=== PATIENT | male | born 1950 | race Caucasian/White ===

== ENCOUNTER 2016-08-24 23:10 | Emergency (ER) | payer OTHER ==
--- NOTE | ~2016-08-24 | CT2 ---
[facility] A Service of [facility] & [facility] RADIOLOGY TEXT RESULTS PATIENT: TAY WITT LOCATION: SED : 46 UNIT #: [id number] AGE: [address]: Rom Viveros MD SEX: M ORDER DR: [id number] [place] [id number] MR#: [id number] Acc #: [id number] NAME: TAY WITT : 1950 SEX: M STUDY DATE/TIME: 08/25/2016 00:53 UNIT: SED ROOM: STUDY DESCRIPTION: CT Abd and Pelv W Cont Attending Physician: Rom Viveros M.D. Ordering Physician: Rom Viveros M.D. Primary Care Physician: Rosalinda Lawton M.D. MEDICAL IMAGING REPORT This report is preliminary unless electronic signature is present. EXAM Abdomen and pelvis CT 08/25/2016 at 0053 hours INDICATIONS Upper abdominal pain that started tonight about 3 hours ago. Pain rates 8/10. TECHNIQUE Axial images were obtained through the abdomen and pelvis following IV contrast administration. Multiplanar reformats were obtained. No comparison. This CT exam was performed with one or more of the following radiation dose reduction techniques: automatic control, adjustment of mA and/or kV according to patient size, and iterative reconstruction. FINDINGS ABDOMEN: There is coronary artery disease. Gallbladder is normal. There is some fat stranding around the kidneys which is probably normal for this patient. Correlation with urinalysis results recommended to exclude any evidence of pyelonephritis. There is some scarring in the lower pole of the left kidney. Solid organs are otherwise normal. There is extensive atherosclerotic disease. Visualized colon is normal. There is a small bowel obstruction. Transition zone is in the anterior abdomen just below the umbilicus is probably secondary to adhesions. The distal ileum is completely decompressed. There is a small periincisional hernia to the right of midline near the level of the umbilicus. This does contain a knuckle of small bowel but this does not appear to be the point of obstruction. PELVIS: The colon is grossly normal. Distal small bowel decompressed. Urinary bladder is normal. There is atherosclerotic disease. No free fluid. IMPRESSION [facility]. [facility] A Service of [facility] & [facility] RADIOLOGY TEXT RESULTS PATIENT: TAY WITT [place] [facility] [place] [birth year] [place]IT #: [id number] AGE: [address]: Rom Viveros MD SEX: M ORDER DR: 1. Small bowel obstruction which is likely secondary to adhesions in the right [id number] abdomen. No obstructing lesion is identified. The distal ileum is completely decompressed. 2. Small periincisional hernia to the right of midline near the level of the umbilicus. This contains a knuckle of non incarcerated small bowel. This does not appear to be a point of obstruction. 3. Atherosclerotic disease and coronary artery disease. 4. Fat stranding around both kidneys can be seen as a normal finding. Correlation with urinalysis results recommended to exclude any evidence for pyelonephritis. There is some scarring in the left kidney. Dictated by... Hussein Kay Jr., M.D. THIS IS AN ELECTRONICALLY VERIFIED REPORT Hussein Kay Jr., M.D. at 08/25/2016 5:53 AM MALINDA/quique TD: 08/25/2016 05:46 JOB #: [id number] MEDICAL IMAGING REPORT Page 1 of 1
--- NOTE | ~2016-08-24 | EKG ---
PATIENT: TAY WITT UNIT #: [id number] Ventricular Rate: 107 BPM Atrial Rate: 60 BPM P-R Interval: 576 ms QRS Duration: 98 ms Q-T Interval: 168 ms QTC Calculation(Bezet): 224 ms Calculated R [place]: 26 degrees Calculated T [place]: 0 degrees Diagnosis Line: Demand pacemaker; interpretation is based on Diagnosis Line: intrinsic rhythm Diagnosis Line: Sinus rhythm with 1st degree A-V block with Diagnosis Line: Premature ventricular complexes or Fusion Diagnosis Line: complexes Diagnosis Line: Nonspecific T wave abnormality Diagnosis Line: Abnormal ECG Diagnosis Line: When compared with ECG of 01-FEB-2015 14:22, Diagnosis Line: Sinus rhythm has replaced Electronic atrial Diagnosis Line: pacemaker Diagnosis Line: Vent. rate has increased BY 47 BPM Diagnosis Line: Nonspecific T wave abnormality now evident in Diagnosis Line: Lateral leads Diagnosis Line: QT has shortened Diagnosis Line: Confirmed by YOANDY GAUTHIER MD ([id number]) on Diagnosis Line: 08/29/2016 8:30:05 AM INTERPRETING MD: ABRAHAN FRANCISCO
[~2016-08-24 23:10] MED LIST: ALPRAZOLAM OD0.25 MG PO; ALPRAZOLAM0.25 MG PO; ASPIRIN PO; ASPIRIN81 M2 PO; CRESTOR10 MG PO; DIOVAN HCT 160-1 TAB PO; DIOVAN320 MG PO; ESCITALOPRAM OX10 MG PO; FLOMAX0.4 M1 PO; GLUCOPHAGE500 MG PO; HYDRALAZINE HC100 MG PO; HYDRALAZINE HCL25 MG PO; HYDRALAZINE HCL50 MG PO; HYDROCODON-ACE1 EAC5 PO; ISOSORBIDE DINI30 MG PO; KEFLEX PO; LANSOPRAZOLE30 M3 PO; LEXAPRO PO; LIPITOR PO; LIPITOR40 MG PO; LORTAB 7.5-5001 TAB PO; NORCO 10-325 TA1 TAB PO; PHENERGAN25 MG PO; PLAVIX PO; PREVACID PO; PRILOSEC20 MG PO; TOPROL XL PO; ZANTAC150 MG PO
[2016-08-24] MEDS ORDERED: AMLODIPINE BESY10 MG (23:19)
[2016-08-24] MEDS ORDERED: TOPROL XL100 MG (23:19)
[2016-08-24] MEDS ORDERED: HYDROCHLOROTH12.5 M1 (23:20)
[2016-08-25 00:14] LABS: BASOPHIL# 0.2 X10e3 (0-0.3); BASOPHIL% 1.2 % (0-2.5); EOSINOPHIL# 0.3 X10e3 (0-0.7); EOSINOPHIL% 1.9 % (0.0-7.0); HEMOGLOBIN 14.2 gm/dL (13.0-16.0); LYMPHOCYTE# 2.2 X10e3 (1.0-3.5); LYMPHOCYTE% 15.8 % (17.0-45.0); MEAN CELL VOLUME 85.4 FL (83-96); MEAN CORPUSCULAR HEMOGLOBIN 29.5 PG (28-34); MEAN CORPUSCULAR HGB CONC 34.5 g/dL (30-36); MEAN PLATELET VOLUME 7.3 FL (6.5-11.5); MONOCYTE# 1.2 X10e3 (0-1.0); MONOCYTE% 8.8 % (3.0-12.0); NEUTROPHIL# 10.1 X10e3 (1.5-7.1); NEUTROPHIL% 72.3 % (40-75); PLATELET COUNT 188 X10e3 (140-420)
[2016-08-25 00:15] LABS: DIFF IND NO
[2016-08-25 00:22] LABS: POC - CKMB 2.4 ng/mL (0.0-7.9); POC - TROPONIN <0.05 ng/mL (<=0.05)
[2016-08-25 00:31] LABS: PROTHROMBIN TIME (PATIENT) 11.2 SECONDS (9.5-12.4)
[2016-08-25 00:37] LABS: ALBUMIN SERUM 4.4 g/dL (3.5-5.0); BILIRUBIN, DIRECT 0.2 mg/dL (0.0-0.2); BILIRUBIN,INDIRECT 0.2 mg/dL (0.0-0.9); BILIRUBIN,TOTAL 0.4 mg/dL (0.2-2.0); BUN/CREATININE RATIO 16.25; CALCIUM SERUM 9.2 mg/dL (8.4-10.2); CREATININE SERUM 0.8 mg/dL (0.6-1.4); GLOM FILT RATE Estimated 92.5 mL/min (>60); PROTEIN TOTAL SERUM 7.3 g/dL (6.0-8.3)
[2016-08-25 00:38] LABS: PARTIAL THROMBOPLASTIN TIME 24.1 SECONDS (25.6-38.1)
[2016-08-25 01:04] LABS: URINE SOURCE CLEAN CATCH
[2016-08-25 01:06] LABS: URINE APPEARANCE CLEAR; URINE BILIRUBIN NEG (NEG); URINE BLOOD NEG (NEG); URINE COLOR YELLOW; URINE KETONE NEG (NEG); URINE LEUKOCYTE ESTERASE NEG (NEG); URINE NITRATE NEG (NEG); URINE PROTEIN NEG (NEG); URINE UROBILINOGEN 0.2 MG/DL (NORM)
[2016-08-25 01:07] LABS: MICRO INDICATED? NO; URINE GLUCOSE NEG (NORM)
== END 2016-08-25 06:51 ==
LOC: SED 23:10
PROVIDERS: Emergency Medicine
DX: K56.60 Unspecified intestinal obstruction (principal); K21.9 Gastro-esophageal reflux disease without esophagitis
CPT/HCPCS: 36415; 74177; 80048; 80076; 81003; 82150; 82553; 83690; 84484; 85025; 85610; 85730; 93005; 96374; 96375; 99285; C9113; J2270; J2405; Q9967